=== PATIENT | female | born 1995 | race Caucasian/White ===

== ENCOUNTER → 2017-08-31 23:22 | Emergency (ER) | payer SELFPAY | END | disposition left against medical advice (07) | LOC: ED 23:22 | DX: Z04.1 Encounter for examination and observation following transport accident (principal); Z53.21 Procedure and treatment not carried out due to patient leaving prior to being seen by health care provider; V87.7XXA Person injured in collision between other specified motor vehicles (traffic), initial encounter; Y93.89 Activity, other specified; Y99.8 Other external cause status; Y92.410 Unspecified street and highway as the place of occurrence of the external cause ==